=== PATIENT | female | born 1990 | race Native Hawaiian/Other Pacific Islander ===

== ENCOUNTER 2017-07-01 12:32 | Emergency (ER) | payer BC ==
[~2017-07-01] VITALS: Ht 162.6 cm; Wt 59.0 kg
[2017-07-01 14:45] LABS: PLATELET COUNT 188 K/uL (152-353)
== END 2017-07-01 16:35 | disposition home or self-care (01) ==
LOC: ED 12:32
PROVIDERS: Internal Medicine
DX: K05.10 Chronic gingivitis, plaque induced (principal)
CPT/HCPCS: 36415; 85027; 96374; 99282; J1885